=== PATIENT | female | born 1985 | race Caucasian/White ===

== ENCOUNTER 2023-09-18 15:23 | Emergency (ER) | payer BC, OTHER ==
[~2023-09-18] VITALS: Ht 157.5 cm; Wt 50.0 kg
[~2023-09-18 15:23] MED LIST: DOCU-28 PO
[2023-09-18] MEDS: LIDOcaine 1% w/EPI 1:100,000 inj. MDV 50 ML VIAL ONE (15:35)
[2023-09-18] MEDS: normal saline 1000ml 1,000 ML IV ONE (15:35)
[2023-09-18] MEDS: LIDOcaine 1% W/epiNEPHrine 1:100,000 20ml vial SQ ONE (15:35)
[2023-09-18] MEDS: TETanus/Pertussis (Acell)/Diphther VAC/PF (Tdap-Adult) 0.5ml syringe IMVAC ONE (15:51)
[2023-09-18] MEDS: ceFAZolin/D5W- 1GM premix 50 ML IV ONE (15:59)
[2023-09-18 16:19] LABS: EOSINOPHILS # (AUTO) 0.3 X10'3 (0-0.9); HEMOGLOBIN 13.1 g/dl (12.0-16.0); LYMPHOCYTES # (AUTO) 3.3 X10'3 (1.1-4.8); MONOCYTES # (AUTO) 0.2 X10'3 (0-0.9); NEUTROPHILS # (AUTO) 1.4 X10'3 (1.8-7.7)
[2023-09-18 16:21] LABS: BASOPHILS % (AUTO) 0.8 % (0-1); EOSINOPHILS % (AUTO) 5.7 % (0-6); HEMATOCRIT 38.8 % (35.0-45.0); LYMPHOCYTES % (AUTO) 63.3 % (21-51); MEAN CORPUSCULAR HGB CONC 33.6 g/dL (33.0-36.5); MONOCYTES % (AUTO) 3.8 % (2-12); NEUTROPHILS % (AUTO) 26.4 % (42-75); PLATELET COUNT 147 X10'3 (140-440); RED BLOOD COUNT 3.96 X10'6 (4.20-5.60); RED CELL DISTRIBUTION WIDTH 13.3 % (11.5-14.5); WHITE BLOOD COUNT 5.2 X10'3 (4.5-11.0)
[2023-09-18 16:26] LABS: URINE HCG NEGATIVE (NEG)
[2023-09-18 16:30] LABS: ALBUMIN 3.6 G/DL (3.4-5.0); ANION GAP 18 (8-16); BLOOD UREA NITROGEN 9 MG/DL (7-18); BUN/CREATININE RATIO 10.2 (10.0-20.0); CALCIUM 7.8 MG/DL (8.5-10.1); CHLORIDE 110 MMOL/L (99-107); CREATININE 0.88 MG/DL (0.40-0.90); ETHANOL 209 MG/DL (<10); GLUCOSE 192 MG/DL (70-104); SODIUM 145 MMOL/L (135-145); TOTAL CARBON DIOXIDE 17.2 MMOL/L (24-32); eCRCL 68 ML/MIN; eGFR 72 ML/MIN
[2023-09-18] MEDS: HYDROcodone/acetaminophen 5mg/325mg tablet PO ONE (16:37)
[2023-09-18 16:50] LABS: URINE AMPHETAMINE SCREEN NEGATIVE (Neg); URINE BARBITUATE SCREEN NEGATIVE (Neg); URINE BENZODIAZEPINES SCREEN NEGATIVE (Neg); URINE CANNABINOID SCREEN NEGATIVE (Neg); URINE COCAINE SCREEN NEGATIVE (Neg); URINE METHADONE SCREEN NEGATIVE (Neg); URINE OPIATE SCREEN NEGATIVE (Neg); URINE PHENCYCLIDINE SCREEN NEGATIVE (Neg)
[2023-09-18 17:03] LABS: ELLIPTOCYTES FEW; PLATELET ESTIMATE NORMAL; TOTAL CELLS COUNTED 100
[2023-09-18] MEDS ORDERED: TEN1T PO (18:47)
[2023-09-18] MEDS ORDERED: CLON-850 PO (18:47)
[2023-09-18] MEDS ORDERED: FLUO60TA PO (18:47)
[2023-09-18] MEDS ORDERED: TRAZ150T78 PO (18:47)
[2023-09-18] MEDS: clonazePAM 0.5mg tablet PO SCH (20:08)
[2023-09-18] MEDS: POTASSIUM BICARB 20meq eff tab 20 MEQ TABLET.EFF PO ONE (20:08)
[2023-09-18] MEDS: traZODone 150mg tablet PO SCH (20:08)
[2023-09-18] MEDS: guanFACINE 1 mg tablet PO SCH (20:11)
[2023-09-18] MEDS: acetaminophen 325mg tablet PO ONE (22:29)
[2023-09-19] MEDS: FLUoxetine 20mg capsule PO SCH (08:07)
[2023-09-19] MEDS: acetaminophen 325mg tablet PO ONE (13:05)
[2023-09-19] MEDS: LORazepam 1 MG tablet PO PRN (13:05)
[2023-09-19] MEDS: ibuprofen tablet 400 MG TABLET PO ONE (13:05)
[2023-09-19] MEDS: ibuprofen tablet 400 MG TABLET PO PRN (20:09)
[2023-09-20 11:55] VITALS: BP 103/53; PULSE 55; RESP 20; TEMP 98.4; O2SAT 98
== END 2023-09-20 11:54 ==
LOC: ER 15:24
DX: S61.511A Laceration without foreign body of right wrist, initial encounter (principal); Z20.822 Contact with and (suspected) exposure to COVID-19; R45.851 Suicidal ideations; Z88.0 Allergy status to penicillin; Z79.899 Other long term (current) drug therapy; X78.1XXA Intentional self-harm by knife, initial encounter; Y93.89 Activity, other specified; Y92.89 Other specified places as the place of occurrence of the external cause; Y99.8 Other external cause status
CPT/HCPCS: 12032; 36415; 80048; 80305; 80320; 81025; 85007; 85025; 87811; 90471; 90715; 96365; 99291; A6222; J0690; J3490; J7030; 82948; A6258; A6449

== ENCOUNTER 2023-09-25 16:01 | Emergency (ER) | payer BC ==
[~2023-09-25] VITALS: Ht 162.6 cm; Wt 54.6 kg
[~2023-09-25 16:01] MED LIST changes: +CLON-850 PO; +FLUO60TA PO; +TEN1T PO; +TRAZ150T78 PO
[2023-09-25 16:05] VITALS: BP 114/75; PULSE 97; RESP 16; TEMP 98; O2SAT 98
== END 2023-09-25 16:39 | disposition home or self-care (01) ==
LOC: ER 16:02
DX: S61.511D Laceration without foreign body of right wrist, subsequent encounter (principal); X58.XXXD Exposure to other specified factors, subsequent encounter; Z88.0 Allergy status to penicillin; Z79.899 Other long term (current) drug therapy
CPT/HCPCS: 99281

== ENCOUNTER 2023-10-02 23:18 | Emergency (ER) | payer BC ==
[~2023-10-02] VITALS: Ht 160 cm; Wt 55.5 kg
[2023-10-03 01:09] LABS: URINE HCG NEGATIVE (NEG)
[2023-10-03 01:20] LABS: URINE AMPHETAMINE SCREEN NEGATIVE (Neg); URINE BARBITUATE SCREEN NEGATIVE (Neg); URINE BENZODIAZEPINES SCREEN POSITIVE (Neg); URINE CANNABINOID SCREEN NEGATIVE (Neg); URINE COCAINE SCREEN NEGATIVE (Neg); URINE METHADONE SCREEN NEGATIVE (Neg); URINE OPIATE SCREEN NEGATIVE (Neg); URINE PHENCYCLIDINE SCREEN NEGATIVE (Neg)
[2023-10-03 01:28] LABS: BASOPHILS # (AUTO) 0.1 X10'3 (0-0.2); BASOPHILS % (AUTO) 1.2 % (0-1); EOSINOPHILS # (AUTO) 0.2 X10'3 (0-0.9); EOSINOPHILS % (AUTO) 4.6 % (0-6); HEMATOCRIT 38.3 % (35.0-45.0); HEMOGLOBIN 13.4 g/dl (12.0-16.0); LYMPHOCYTES # (AUTO) 2.3 X10'3 (1.1-4.8); LYMPHOCYTES % (AUTO) 50.2 % (21-51); MEAN CORPUSCULAR HEMOGLOBIN 33.7 PG (27.0-31.0); MEAN CORPUSCULAR HGB CONC 34.9 g/dL (33.0-36.5); MEAN CORPUSCULAR VOLUME 96.4 FL (78-98); MEAN PLATELET VOLUME 7.9 FL (7.4-10.4); MONOCYTES # (AUTO) 0.3 X10'3 (0-0.9); MONOCYTES % (AUTO) 5.6 % (2-12); NEUTROPHILS # (AUTO) 1.8 X10'3 (1.8-7.7); NEUTROPHILS % (AUTO) 38.4 % (42-75); PLATELET COUNT 209 X10'3 (140-440); RED BLOOD COUNT 3.98 X10'6 (4.20-5.60); RED CELL DISTRIBUTION WIDTH 13.9 % (11.5-14.5); WHITE BLOOD COUNT 4.6 X10'3 (4.5-11.0)
[2023-10-03 01:41] LABS: ALBUMIN 3.7 G/DL (3.4-5.0); ANION GAP 11 (8-16); BLOOD UREA NITROGEN 8 MG/DL (7-18); CALCIUM 8.6 MG/DL (8.5-10.1); CHLORIDE 107 MMOL/L (99-107); CREATININE 0.73 MG/DL (0.40-0.90); ETHANOL 134 MG/DL (<10); GLUCOSE 74 MG/DL (70-104); POTASSIUM 4.4 MMOL/L (3.5-5.1); SALICYLATE 2.3 MG/DL (4.0-20.0); SODIUM 147 MMOL/L (135-145); TOTAL CARBON DIOXIDE 28.8 MMOL/L (24-32); eCRCL 86 ML/MIN; eGFR 89 ML/MIN
[2023-10-03 01:50] LABS: ACETAMINOPHEN < 2.0 UG/ML (10-30)
[2023-10-03] MEDS ORDERED: VALA10002 PO (02:44)
[2023-10-03] MEDS: clonazePAM 0.5mg tablet PO SCH (09:05)
[2023-10-03] MEDS: FLUoxetine 20mg capsule PO SCH (09:05)
[2023-10-03] MEDS: LORazepam 1 MG tablet PO PRN (11:24)
[2023-10-03 18:21] VITALS: TEMP 98.4
[2023-10-03] MEDS: traZODone 150mg tablet PO SCH (20:56)
[2023-10-03] MEDS: guanFACINE 1 mg tablet PO SCH (20:59)
[2023-10-04 08:58] VITALS: RESP 16
[2023-10-04 10:54] VITALS: BP 109/63; PULSE 89; O2SAT 97
== END 2023-10-04 10:55 | disposition still patient (30) ==
LOC: ER 23:19
DX: R45.851 Suicidal ideations (principal); Z20.822 Contact with and (suspected) exposure to COVID-19; Z88.0 Allergy status to penicillin; Z79.899 Other long term (current) drug therapy
CPT/HCPCS: 36415; 80048; 80305; 80320; 80329; 81025; 85025; 87811; 99285